=== PATIENT | male | born 2000 | race Hispanic/Latino ===

== ENCOUNTER 2024-07-03 20:32 | Emergency (ER) | payer SELFPAY, OTHER ==
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
[2024-07-03 23:07] VITALS: TEMP 98.8
[2024-07-03 23:08] VITALS: BP 129/75; O2SAT 100
== END 2024-07-03 22:27 | disposition home or self-care (01) ==
LOC: ER 20:32
DX: S09.90XA Unspecified injury of head, initial encounter (principal); S20.211A Contusion of right front wall of thorax, initial encounter; V49.40XA Driver injured in collision with unspecified motor vehicles in traffic accident, initial encounter
CPT/HCPCS: 70450; 71046; 99284